=== PATIENT | male | born 1965 | race Two or more races ===

== ENCOUNTER 2016-05-06 07:40 | Emergency (ER) | payer SELFPAY ==
[2016-05-06] MEDS ORDERED: ACETAMINOPHEN 500 MG TABLET ONE (08:02)
--- NOTE | 2016-05-06 08:51 | RAD ---
CHEST - 2 VIEWS COMPARISON: None. HISTORY: Cough. FINDINGS: Views: Frontal and lateral chest Lungs: Normal Heart and vessels: Marked cardiomegaly or enlarged cardiac silhouette. Normal pulmonary vessels and aorta. Trachea and bronchi: Normal Mediastinum and schuyler: Normal Costophrenic sulci: Normal Chest wall and bones: Normal. Upper abdomen: Normal. IMPRESSION: Enlarged cardiac silhouette. Differential diagnosis includes cardiomegaly from dilated left ventricle versus pericardial effusion.
== END 2016-05-06 09:12 | disposition home or self-care (01) ==
LOC: ED 07:40
DX: J06.9 Acute upper respiratory infection, unspecified (principal); I10 Essential (primary) hypertension; I50.9 Heart failure, unspecified; M32.9 Systemic lupus erythematosus, unspecified
CPT/HCPCS: 87880; 71020; 87804; 99283 ×2; A9270